=== PATIENT | male | born 1975 | race Two or more races ===

== ENCOUNTER 2017-03-12 07:45 | Emergency (ER) | payer MEDICAID ==
[~2017-03-12] VITALS: Ht 170.2 cm; Wt 89.4 kg
[2017-03-12] MEDS ORDERED: LIDOCAINE 1%, 20ML ONE (08:15)
[2017-03-12] MEDS ORDERED: ONDANSETRON ODT 4 MG ONE (08:15)
[2017-03-12] MEDS ORDERED: HYDROcodone/APAP 5/325 TABLET ONE (08:15)
[2017-03-12] MEDS ORDERED: BENZOCAINE 20% SPRAY 0.5ML ONE (08:15)
[2017-03-12] MEDS ORDERED: HYDROcodone/APAP 5/325 TABLET PO ONE (08:30)
[2017-03-12] MEDS ORDERED: ONDANSETRON ODT 4 MG PO ONE (08:30)
[2017-03-12] MEDS ORDERED: BENZOCAINE 20% SPRAY 0.5ML TP ONE (08:30)
[2017-03-12] MEDS ORDERED: LIDOCAINE 1%-EPI 1:100K, 20ML SQ ONE (08:30)
[2017-03-12 08:50] VITALS: BP 120/60
== END 2017-03-12 08:53 | disposition home or self-care (01) ==
LOC: ED 08:50
DX: K04.7 Periapical abscess without sinus (principal)
CPT/HCPCS: 41800; 99284; Q0162